=== PATIENT | male | born 1990 | race Caucasian/White ===

== ENCOUNTER 2020-10-05 04:07 | Emergency (ER) | payer SELFPAY ==
[~2020-10-05] VITALS: Ht 175.3 cm; Wt 75.0 kg
[2020-10-05] MEDS ORDERED: VISCOUS LIDOCAINE 2% 15 ML UDC PO STA (04:34)
[2020-10-05] MEDS ORDERED: MAGNESIUM/ALUMINUM HYDROXIDE/SIMETHICONE 30ML UDC PO STA (04:34)
[2020-10-05 06:15] VITALS: BP 133/74
== END 2020-10-05 06:15 | disposition home or self-care (01) ==
LOC: ER 04:37
DX: R00.2 Palpitations (principal)
CPT/HCPCS: 93005; 99283